=== PATIENT | male | born 1960 | race African-American/Black ===

== ENCOUNTER 2024-06-10 05:31 | Inpatient (IN) | payer OTHER ==
[~2024-06-10] VITALS: Ht 210.8 cm; Wt 129.2 kg
[2024-06-10] MEDS: AMIODARONE HCL 150 MG in DEXTROSE 5%-WATER 97 ML IV ONE (06:05)
[2024-06-10] MEDS: AMIODARONE HCL 360 MG in DEXTROSE 5%-WATER 242.8 ML IV ONE (06:21)
[2024-06-10 06:23] LABS: ANION GAP 9 mmol/L (8-16); CARBON DIOXIDE 27 mmol/L (22-29); CHLORIDE 108 mmol/L (98-107); CREATININE 1.33 mg/dL (0.60-1.30); GLOMERULAR FILTR. RATE CALC > 60 mL/min (>60); GLUCOSE,RANDOM 107 mg/dL (70-110); POTASSIUM 3.9 mmol/L (3.5-5.1); SODIUM SERUM 144 mmol/L (136-145); UREA NITROGEN, BLOOD 16 mg/dL (7-18)
[2024-06-10 06:25] LABS: BASOPHILS % (AUTO) 0.1 % (0.0-2.0); EOSINOPHILS % (AUTO) 0.1 % (1.0-6.0); HEMATOCRIT 41.6 % (41-53); HEMOGLOBIN 13.7 g/dL (13.5-17.5); LYMPHOCYTES # (AUTO) 0.3 K/uL (1.0-4.8); LYMPHOCYTES % (AUTO) 3.5 % (22.0-44.0); MEAN CORPUSCULAR HEMOGLOBIN 28.2 pg (26.0-34.0); MEAN CORPUSCULAR HGB CONC 32.9 G/dL (31.0-37.0); MEAN CORPUSCULAR VOLUME 86 fL (80-100); MONOCYTES # (AUTO) 0.1 K/uL (0.1-1.0); MONOCYTES % (AUTO) 0.7 % (2.0-9.0); NEUTROPHILS # (AUTO) 8.2 K/uL (1.8-7.7); PLATELET COUNT (AUTO) 112 K/uL (150-450); RED BLOOD CELL COUNT(AUTO) 4.86 MIL/uL (4.50-5.90); WHITE BLOOD COUNT (AUTO) 8.6 K/uL (4.5-11.0)
[2024-06-10 06:26] LABS: NEUTROPHILS % (AUTO) 95.6 % (40.0-70.0)
[2024-06-10 06:29] LABS: CREATINE KINASE, TOTAL ONLY 60 U/L (39-308)
[2024-06-10 06:33] LABS: PROTHROMBIN TIME 13.3 SEC (9.4-11.6)
[2024-06-10 06:34] LABS: TROPONIN I-HIGH SENSITIVITY 91 ng/L (<76)
[2024-06-10 06:45] LABS: B-TYPE NATRIURETIC PEPTIDE 82 pg/mL (0-100)
[2024-06-10 07:04] LABS: COVID AG,FIA SOURCE NASAL SWAB
[2024-06-10] MEDS: SODIUM CHLORIDE 0.9% 500 ML IV ONE ×2 (07:16→13:58)
[2024-06-10] MEDS ORDERED: ACETAMINOPHEN 325 MG TABLET PO PRN (07:30)
[2024-06-10] MEDS ORDERED: ONDANSETRON HCL 4 MG/2 ML VIAL IVP PRN (07:30)
[2024-06-10 07:36] LABS: SARS-COV2 (COVID) ANTIGEN,FIA Negative (Negative)
[2024-06-10 07:37] LABS: INFLUENZA TYPE A NEGATIVE FOR TYPE A (NEGATIVE); INFLUENZA TYPE B NEGATIVE FOR TYPE B (NEGATIVE)
[2024-06-10] MEDS ORDERED: HEPARIN SODIUM,PORCINE 5,000 UNITS/ML VIAL SQ SCH (08:00)
[2024-06-10 08:04] LABS: LACTIC ACID 3.3 mmol/L (0.4-2.0)
[2024-06-10] MEDS ORDERED: PHENYLEPHRINE HCL IN 0.9% NACL 400 MCG/10 ML SYRINGE IVP ONE (08:18)
[2024-06-10] MEDS: CefTRIAXone 1 GM/DEXTROSE 50 ML IV ONE (08:32)
[2024-06-10] MEDS: PHENYLEPHRINE HCL IN 0.9% NACL 400 MCG/10 ML SYRINGE IVP ONE (08:33)
[2024-06-10] MEDS: PHENYLEPHRINE 200 MG/D5%-WATER 250 ML IV PRN (08:34)
[2024-06-10 08:51] LABS: TROPONIN I-HIGH SENSITIVITY 330 ng/L (<76)
[2024-06-10] MEDS: DOCUSATE SODIUM 100 MG CAPSULE PO SCH (09:00)
[2024-06-10] MEDS ORDERED: POTASSIUM CHL 10 MEQ/WATER 50 ML IV PRN (09:45)
[2024-06-10] MEDS ORDERED: MAGNESIUM SULFATE 4 GM/WATER 100 ML IV PRN (09:45)
[2024-06-10] MEDS ORDERED: POTASSIUM CHLORIDE 20 MEQ ER TABLET PO PRN (09:45)
[2024-06-10] MEDS ORDERED: MAGNESIUM OXIDE 400 MG TABLET PO PRN (09:45)
[2024-06-10] MEDS ORDERED: RIVA20TA PO (09:53)
[2024-06-10] MEDS ORDERED: [UNRECOGNIZED DRUG - OTHER] ADCAN (09:53)
[2024-06-10 10:08] LABS: ALBUMIN 2.9 g/dL (3.4-5.0)
[2024-06-10] MEDS ORDERED: METO-408 PO (10:09)
[2024-06-10] MEDS ORDERED: CYCL10TA16 PO (10:09)
[2024-06-10] MEDS ORDERED: RISP2TAB45 PO (10:09)
[2024-06-10 11:18] LABS: APPEARANCE,URINE HAZY (CLEAR); BILIRUBIN,URINE NEGATIVE (NEGATIVE); GLUCOSE, URINE (UA) NEGATIVE (NEGATIVE); KETONES,URINE NEGATIVE (NEGATIVE); LEUKOCYTE ESTERASE ,URINE NEGATIVE (NEGATIVE); NITRATE,URINE NEGATIVE (NEGATIVE); OCCULT BLOOD,URINE LARGE (NEGATIVE); PH,URINE 5.5 (5.0-8.0); PROTEIN,URINE 30-70 mg/dL (NEGATIVE); SPECIFIC GRAVITIY, URINE 1.011 (1.003-1.030); UROBILINOGEN,URINE <=1.0 mg/dL (<=1.0)
[2024-06-10 11:23] LABS: COLOR,URINE YELLOW (YELLOW)
[2024-06-10 11:25] LABS: RBC,URINE >100 /HPF (0-2); WBC,URINE 0-2 /HPF (0-5)
[2024-06-10 11:26] LABS: BACTERIA,URINE Few /HPF (None Seen); SQUAMOUS EPITHELIAL CELL,UR Few /LPF (None Seen)
[2024-06-10] MEDS: AMIODARONE HCL 540 MG in DEXTROSE 5%-WATER 239.2 ML IV ONE (12:37)
[2024-06-10] MEDS: MAGNESIUM SULFATE 2 GM/WATER 50 ML IV PRN (13:59)
[2024-06-10] MEDS: PIPERACILLIN/TAZO 3.375 GM/D5W 50 ML IV SCH (19:11)
[2024-06-10] MEDS: CHLORHEXIDINE GLUCONATE 2% TOWELETTE [2'S/6'S] TP SCH (20:39)
[2024-06-10 21:30] VITALS: BP 102/52; PULSE 78; RESP 22; TEMP 99.1; O2SAT 97
[2024-06-10] MEDS: ETHYL ALCOHOL 62% ANTISEPTIC NASAL SANITIZER 0.6 ML AMPUL NASAL SCH (23:19)
[2024-06-11] VITALS (9 sets, daily range): BP systolic 83–128; BP diastolic 55–72; PULSE 63–100; RESP 15–25; TEMP 97.8–98.8; O2SAT 94–99
[2024-06-11] MEDS ORDERED: SODIUM CHLORIDE 0.9% 250 ML IV ONE (00:25)
[2024-06-11 05:44] LABS: BASOPHILS % (AUTO) 0.1 % (0.0-2.0); EOSINOPHILS % (AUTO) 0.3 % (1.0-6.0); HEMOGLOBIN 12.8 g/dL (13.5-17.5); LYMPHOCYTES # (AUTO) 0.6 K/uL (1.0-4.8); LYMPHOCYTES % (AUTO) 5.5 % (22.0-44.0); MEAN CORPUSCULAR HEMOGLOBIN 28.2 pg (26.0-34.0); MEAN CORPUSCULAR HGB CONC 32.7 G/dL (31.0-37.0); MEAN CORPUSCULAR VOLUME 86 fL (80-100); MONOCYTES # (AUTO) 0.6 K/uL (0.1-1.0); MONOCYTES % (AUTO) 5.5 % (2.0-9.0); PLATELET COUNT (AUTO) 142 K/uL (150-450); RED BLOOD CELL COUNT(AUTO) 4.53 MIL/uL (4.50-5.90); RED CELL DISTRIBUTION WIDTH 14.4 % (11.5-14.5); WHITE BLOOD COUNT (AUTO) 11.3 K/uL (4.5-11.0)
[2024-06-11 05:49] LABS: NEUTROPHILS % (AUTO) 88.6 % (40.0-70.0)
[2024-06-11 05:53] LABS: ANION GAP 7 mmol/L (8-16); CALCIUM, TOTAL 7.9 mg/dL (8.8-10.5); CARBON DIOXIDE 24 mmol/L (22-29); CHLORIDE 110 mmol/L (98-107); CREATININE 1.11 mg/dL (0.60-1.30); GLOMERULAR FILTR. RATE CALC > 60 mL/min (>60); GLUCOSE,RANDOM 96 mg/dL (70-110); POTASSIUM 3.8 mmol/L (3.5-5.1); SODIUM SERUM 141 mmol/L (136-145); UREA NITROGEN, BLOOD 14 mg/dL (7-18)
[2024-06-11 06:02] LABS: LACTIC ACID 0.8 mmol/L (0.4-2.0)
[2024-06-11] MEDS: AMIODARONE HCL 750 MG in DEXTROSE 5%-WATER 485 ML IV SCH (06:08)
[2024-06-11 06:09] LABS: TROPONIN I-HIGH SENSITIVITY 312 ng/L (<76)
[2024-06-11 06:44] LABS: CREATININE,URINE RANDOM 139.6 mg/dL (30.0-125.0)
[2024-06-11] MEDS: RIVAROXABAN 20 MG TABLET PO SCH (09:17)
[2024-06-11] MEDS: AMIODARONE HCL 200 MG TABLET PO ONE (11:34)
[2024-06-11] MEDS ORDERED: SODIUM CHLORIDE 0.9% 500 ML IV ONE (20:43)
[2024-06-11] MEDS: AMIODARONE HCL 200 MG TABLET PO SCH (20:50)
[2024-06-11] MEDS: RisperiDONE 2 MG TABLET PO SCH (21:46)
[2024-06-12] VITALS (9 sets, daily range): BP systolic 95–121; BP diastolic 52–77; PULSE 81–130; RESP 18–21; TEMP 98–98.4; O2SAT 97–99
[2024-06-12] MEDS ORDERED: AMIODARONE HCL 360 MG in DEXTROSE 5%-WATER 242.8 ML IV ONE (11:15)
[2024-06-12] MEDS ORDERED: METOPROLOL SUCCINATE 50 MG ER TABLET PO SCH (11:45)
[2024-06-12] MEDS: AMIODARONE HCL 360 MG in DEXTROSE 5%-WATER 242.8 ML IV ONE (12:01)
[2024-06-12] MEDS: METOPROLOL SUCCINATE 50 MG ER TABLET PO SCH (12:01)
[2024-06-12] MEDS: AMIODARONE HCL 540 MG in DEXTROSE 5%-WATER 239.2 ML IV ONE (18:24)
[2024-06-13] VITALS (8 sets, daily range): BP systolic 112–138; BP diastolic 62–79; PULSE 78–105; RESP 18–20; TEMP 97.6–98.3; O2SAT 97–100
[2024-06-13 09:02] LABS: BASOPHILS % (AUTO) 0.3 % (0.0-2.0); EOSINOPHILS % (AUTO) 0.7 % (1.0-6.0); HEMATOCRIT 37.7 % (41-53); HEMOGLOBIN 12.6 g/dL (13.5-17.5); LYMPHOCYTES # (AUTO) 0.7 K/uL (1.0-4.8); LYMPHOCYTES % (AUTO) 11.1 % (22.0-44.0); MEAN CORPUSCULAR HEMOGLOBIN 28.3 pg (26.0-34.0); MEAN CORPUSCULAR HGB CONC 33.4 G/dL (31.0-37.0); MEAN CORPUSCULAR VOLUME 85 fL (80-100); MONOCYTES # (AUTO) 0.8 K/uL (0.1-1.0); MONOCYTES % (AUTO) 11.9 % (2.0-9.0); NEUTROPHILS # (AUTO) 4.9 K/uL (1.8-7.7); PLATELET COUNT (AUTO) 112 K/uL (150-450); RED BLOOD CELL COUNT(AUTO) 4.46 MIL/uL (4.50-5.90); RED CELL DISTRIBUTION WIDTH 13.8 % (11.5-14.5); WHITE BLOOD COUNT (AUTO) 6.5 K/uL (4.5-11.0)
[2024-06-13 09:20] LABS: ANION GAP 8 mmol/L (8-16); CALCIUM, TOTAL 7.7 mg/dL (8.8-10.5); CARBON DIOXIDE 26 mmol/L (22-29); CHLORIDE 107 mmol/L (98-107); CREATININE 1.14 mg/dL (0.60-1.30); GLOMERULAR FILTR. RATE CALC > 60 mL/min (>60); GLUCOSE,RANDOM 102 mg/dL (70-110); POTASSIUM 3.5 mmol/L (3.5-5.1); SODIUM SERUM 141 mmol/L (136-145); UREA NITROGEN, BLOOD 10 mg/dL (7-18)
[2024-06-13] MEDS ORDERED: AMIODARONE HCL 750 MG in DEXTROSE 5%-WATER 485 ML IV SCH (11:15)
[2024-06-13] MEDS: AMIODARONE HCL 750 MG in DEXTROSE 5%-WATER 485 ML IV SCH (13:52)
[2024-06-13] MEDS: RIVAROXABAN 20 MG TABLET PO SCH (17:14)
[2024-06-13] MEDS: POTASSIUM CHLORIDE 10% 40 MEQ/30 ML LIQUID UDCUP PO ONE (22:40)
[2024-06-14 00:08] VITALS: BP 116/67; PULSE 67; RESP 19; TEMP 97.9; O2SAT 97
== END 2024-06-13 23:56 | disposition short-term general hospital (02) | DRG 720 ==
LOC: EMS 05:38 → EDH 07:24 → ICUN 09:46 → EDH 09:46 → ICU 21:34 → 5S 06-11 18:40
PROVIDERS: ADMIT Internal Medicine; ATTEND Internal Medicine
DX: A41.9 Sepsis, unspecified organism (principal); N17.0 Acute kidney failure with tubular necrosis; R57.0 Cardiogenic shock; E87.20 Acidosis, unspecified; I42.9 Cardiomyopathy, unspecified; J18.9 Pneumonia, unspecified organism; I48.20 Chronic atrial fibrillation, unspecified; I11.0 Hypertensive heart disease with heart failure; I50.22 Chronic systolic (congestive) heart failure; Z20.822 Contact with and (suspected) exposure to COVID-19; I49.3 Ventricular premature depolarization; Z95.810 Presence of automatic (implantable) cardiac defibrillator; Z79.899 Other long term (current) drug therapy
CPT/HCPCS: 71045; 71250; 80048; 81001; 82040; 82550; 82570; 83605; 83735; 83880; 84300; 84484; 85025; 85610; 85730; 87040; 87081; 87481; 87804; 93005; 93306; 99285; G0378; J0282; J0696; J2370; J2543; J3475; J7040; J7050; J7060; 36415-L1; 36415-TC